=== PATIENT | female | born 1960 | race Caucasian/White ===

== ENCOUNTER 2022-06-18 12:40 | Inpatient (IN) | payer MEDICAID ==
[~2022-06-18] VITALS: Ht 172.7 cm; Wt 83.7 kg
--- NOTE | 2022-06-18 12:43 | NUR ---
Patient to ER bed 04 to gown for evaluation. Side rails up.
[2022-06-18 12:44] VITALS: BP_SYST 138
--- NOTE | 2022-06-18 13:00 | NUR ---
Met with patient and assessed. Gave IV fluids following drawing blood. Patient states having pain and jarad try to go to the bathroom. Patient blood sent to the lab abd patient taken to the CT scanner for Exam.
[2022-06-18] MEDS ORDERED: MORPHINE 4 MG INJ. 4 MG/ML VIAL IVP ONE (13:15)
[2022-06-18] MEDS ORDERED: NACL 0.9% 1,000 ML IV ONE ×2 (13:15→14:00)
[2022-06-18] MEDS ORDERED: ONDANSETRON HCL 4 MG/2 ML VIAL IVP ONE (13:15)
[2022-06-18 13:27] LABS: BASOPHILS # (AUTO) 0.1 K/uL (0.0-0.2); BASOPHILS % (AUTO) 0.6 % (0.0-2.0); EOSINOPHILS # (AUTO) 0.1 K/uL (0.0-0.4); EOSINOPHILS % (AUTO) 0.6 % (0.0-4.0); HEMATOCRIT 42.8 % (36-48); HEMOGLOBIN 14.7 g/dL (12.0-16.0); LYMPHOCYTES # (AUTO) 3.1 K/uL (1.0-5.5); LYMPHOCYTES % (AUTO) 23.6 % (20.5-51.5); MEAN CORPUSCULAR HEMOGLOBIN 33 pg (27-31); MEAN CORPUSCULAR HGB CONC 34 % (32-36); MEAN CORPUSCULAR VOLUME 97 fL (79.0-98.0); MONOCYTES # (AUTO) 0.9 K/uL (0.0-1.0); MONOCYTES % (AUTO) 6.5 % (1.7-9.3); NEUTROPHILS # (AUTO) 9.1 K/uL (1.8-7.7); NEUTROPHILS % (AUTO) 68.7 % (40.0-70.0); PLATELET COUNT (AUTO) 307 K/uL (130-430); RED BLOOD CELL COUNT(AUTO) 4.42 MIL/uL (4.2-6.2); RED CELL DISTRIBUTION WIDTH 13.2 % (9.0-15.0); WHITE BLOOD COUNT (AUTO) 13.2 K/uL (4.8-10.8)
[2022-06-18 13:32] LABS: CALCIUM 9.3 mg/dL (8.4-11.0); CREATININE 1.64 mg/dL (0.55-1.30)
[2022-06-18 13:38] LABS: ALBUMIN 3.9 g/dL (3.4-4.8); TOTAL BILIRUBIN 0.6 mg/dL (0.0-1.0)
[2022-06-18 13:43] LABS: POTASSIUM 2.7 mmol/L (3.5-5.1)
[2022-06-18] MEDS ORDERED: POTASSIUM CHLORIDE 40 MEQ, LIDOCAINE JECT 2% PF 100 MG 50 MG in NS 250 ML IV ONE (14:00)
[2022-06-18] MEDS ORDERED: KCL 20 mEq in 100 mL (PREMIX) 200 ML IV ONE (14:39)
--- NOTE | 2022-06-18 15:22 | NUR ---
covid specimen collected sent to the lab.
[2022-06-18 15:43] LABS: BILIRUBIN,URINE NEGATIVE (NEGATIVE); CLARITY/URINE CLEAR (CLEAR); COLOR,URINE YELLOW (YELLOW); GLUCOSE,URINE NEGATIVE (NEGATIVE); KETONES,URINE NEGATIVE (NEGATIVE); LEUKOCYTE ESTERASE ,URINE 2+ (NEGATIVE); NITRITE, URINE NEGATIVE (NEGATIVE); PROTEIN URINE NEGATIVE (NEGATIVE); UROBILINOGEN,URINE 0.2 (0.2-1.0)
--- NOTE | 2022-06-18 16:29 | NUR ---
Called Brian (on-call today) for admission orders.
--- NOTE | 2022-06-18 16:31 | NUR ---
Admission request for hypokalemia: Tele bed.
[2022-06-18 16:53] LABS: BLOOD, URINE TRACE (NEGATIVE)
[2022-06-18 16:54] LABS: BACTERIA,URINE FEW /HPF (None Seen)
[2022-06-18 16:56] LABS: MUCUS,URINE 1+ /LPF (None Seen)
--- NOTE | 2022-06-18 17:13 | NUR ---
Patient was upset about having to stay in the hospital. RN explained need to stay with patient nad Addendum: 06/18/22 at 1716 by [email or web address] and patient then spoke with MD and decided to stay tonight. Awaiting room assignment and transfer to floor.
--- NOTE | 2022-06-18 18:46 | NUR ---
Patient will be admitted to care of [facility]. Admitted to Medical Surgical unit. Will go to room 130A. Belongings list completed. Complete and up to date summary report printed. SBAR report to be given at bedside with opportunity for questions.
[2022-06-18 19:50] VITALS: BP_SYST 138
--- NOTE | 2022-06-18 19:50 | NUR ---
PM ASSESSMENT; -Pt is a/xo4,resting in bed comfortably. Pt denies any chest pain,pain,sob,or any acute distress. IV site patent, no s/s any infiltration noted. Rt a/c redness noted, pt stated, " I think I am allergic to something, I had this before. I will go see a flanging operator soon." Discussed poc,all safety measure, pain mgmt,pt verbalized understanding. Pt is able to use call light w/in reach for assistance. Bed alarmed, side rails x3,call light w/in reach. Cont to monitor pt.
[2022-06-18 20:13] VITALS: BP_SYST 138
[2022-06-18] MEDS ORDERED: LOSA100T3 PO (20:36)
[2022-06-18] MEDS ORDERED: NORT25CA PO (20:39)
[2022-06-18] MEDS ORDERED: SIMV-343 PO (20:39)
[2022-06-18] MEDS ORDERED: PRO40 PO (20:39)
[2022-06-18] MEDS ORDERED: METO-442 PO (20:39)
[2022-06-18] MEDS: D5/0.45 NS 1,000 ML IV SCH (20:49)
--- NOTE | 2022-06-18 21:40 | NUR ---
CONSULTATION CALLED FOR DR. Chapis GRACIA IS ENGINEERING GEOLOGIST FOR CONSULT OF INTRACTIBLE VOMITING ORDER BY DR. Lilli ARREOLA SPOKE WITH TYLER+
--- NOTE | 2022-06-18 21:50 | NUR ---
ROUNDS; -Pt wakes, laying in bed comfortably. Pt denies any pain,sob,N&V or any acute distress. Call light w/in reach. cont to monitor pt.
[2022-06-18] MEDS ORDERED: ONDANSETRON HCL 4 MG/2 ML VIAL IVP PRN (22:30)
[2022-06-18] MEDS ORDERED: HYDROcodone/ACETAMIN 10-325 MG TAB PO PRN (22:30)
[2022-06-18] MEDS ORDERED: HYDROcodone/ACETAMIN 5-325 MG TAB (NORCO/ VICODIN) PO PRN (22:30)
[2022-06-18] MEDS ORDERED: ACETAMINOPHEN 325 MG TABLET PO PRN (22:30)
[2022-06-18] MEDS ORDERED: NALOXONE HCL 0.4 MG/ML AMP (NARCAN) IVP PRN ×2 (22:30)
[2022-06-18] MEDS ORDERED: LORazepam 2 MG/ML VIAL IVP PRN (22:30)
--- NOTE | 2022-06-19 01:42 | NUR ---
ROUNDS; -Pt is asleep. NO s/s any acute distress noted. All safety measures in place. Call light w/in reach. cont to monitor pt.
[2022-06-19 02:39] VITALS: BP_SYST 120
[2022-06-19] MEDS: D5/0.45 NS 1,000 ML IV SCH (03:00)
--- NOTE | 2022-06-19 04:16 | NUR ---
NOTES; -IV site of left ac/ infiltration, removed whole tip catheter in place, no active bleeding, secured with gauze & tape. Rui inserted new IV site of RAC #18,patent,good blood returns after flushed w/ NS, no s/s any infiltration. Continuing to infuse IVF. Call light w/in reach. Cont to monitor pt.
--- NOTE | 2022-06-19 06:55 | NUR ---
CLOSING NOTES; -Pt is a/xo4,resting in bed comfortably. No ss/ any chest pain,pain,sob,or any acute distress noted. IV site patent, no s/s any infiltration noted. Will endorse to next nurse to cont care.
[2022-06-19 06:57] LABS: BASOPHILS # (AUTO) 0.1 K/uL (0.0-0.2); BASOPHILS % (AUTO) 0.8 % (0.0-2.0); EOSINOPHILS # (AUTO) 0.2 K/uL (0.0-0.4); EOSINOPHILS % (AUTO) 1.7 % (0.0-4.0); HEMATOCRIT 36.5 % (36-48); HEMOGLOBIN 12.5 g/dL (12.0-16.0); LYMPHOCYTES # (AUTO) 3.9 K/uL (1.0-5.5); LYMPHOCYTES % (AUTO) 32.3 % (20.5-51.5); MEAN CORPUSCULAR HEMOGLOBIN 33 pg (27-31); MEAN CORPUSCULAR HGB CONC 34 % (32-36); MEAN CORPUSCULAR VOLUME 98 fL (79.0-98.0); MONOCYTES # (AUTO) 0.8 K/uL (0.0-1.0); MONOCYTES % (AUTO) 6.8 % (1.7-9.3); NEUTROPHILS % (AUTO) 58.4 % (40.0-70.0); PLATELET COUNT (AUTO) 185 K/uL (130-430); RED BLOOD CELL COUNT(AUTO) 3.73 MIL/uL (4.2-6.2); RED CELL DISTRIBUTION WIDTH 13.3 % (9.0-15.0)
[2022-06-19 07:29] LABS: ALBUMIN 2.9 g/dL (3.4-4.8); CALCIUM 7.8 mg/dL (8.4-11.0); CREATININE 0.86 mg/dL (0.55-1.30); PHOSPHORUS 2.6 mg/dL (2.7-4.5); POTASSIUM 3.9 mmol/L (3.5-5.1); TOTAL BILIRUBIN 0.7 mg/dL (0.0-1.0)
--- NOTE | 2022-06-19 08:00 | NUR ---
Patient refused all physical assessment as of now, patient states she is ready to go home. RN unable to assess patient.
[2022-06-19] MEDS ORDERED: LOSARTAN POTASSIUM 50 MG TABLET (COZAAR) PO SCH (09:00)
[2022-06-19] MEDS ORDERED: METOPROLOL TARTRATE 50 MG TABLET PO SCH (09:00)
[2022-06-19] MEDS ORDERED: NORTRIPTYLINE HCL 25 MG CAPSULE PO SCH (09:00)
[2022-06-19] MEDS ORDERED: PANTOPRAZOLE SODIUM 40 MG TAB PO SCH (09:00)
--- NOTE | 2022-06-19 09:47 | NUR ---
Received patient in bed aao x 4, vital signs within normal limits, denies pain, patient refused all her meds, states she doesn't know what they are, patient states she already spoke to the Doctor and the DAoctor told her she can leave, patient states "the joke is on you guys because am leaving now." Explained discharge procedures to patient, patient states "no joke is on you, you better take this out or i will go home with it". Patient inpatient and wants to leave. Will alert Charge Nurse.
--- NOTE | 2022-06-19 10:30 | NUR ---
Patient left AMA, Patient appear comfortable.
[2022-06-19] MEDS ORDERED: SIMVASTATIN 20 MG TABLET PO SCH (21:00)
== END 2022-06-19 11:00 | disposition left against medical advice (07) | DRG 241 ==
LOC: SED 12:40 → SMU 16:46
PROVIDERS: ADMIT Preventive Medicine Preventive Medicine/Occupational Environmental Medicine; ATTEND Preventive Medicine Preventive Medicine/Occupational Environmental Medicine
DX: K29.70 Gastritis, unspecified, without bleeding (principal); N17.0 Acute kidney failure with tubular necrosis; E83.39 Other disorders of phosphorus metabolism; K52.9 Noninfective gastroenteritis and colitis, unspecified; E86.0 Dehydration; E78.5 Hyperlipidemia, unspecified; I10 Essential (primary) hypertension; Z20.822 Contact with and (suspected) exposure to COVID-19; E83.52 Hypercalcemia; E87.1 Hypo-osmolality and hyponatremia; E87.6 Hypokalemia; E88.09 Other disorders of plasma-protein metabolism, not elsewhere classified; F17.200 Nicotine dependence, unspecified, uncomplicated; F32.A Depression, unspecified; K21.9 Gastro-esophageal reflux disease without esophagitis; E66.9 Obesity, unspecified; Z53.29 Procedure and treatment not carried out because of patient's decision for other reasons; Z79.899 Other long term (current) drug therapy; Z88.0 Allergy status to penicillin; Z68.28 Body mass index [BMI] 28.0-28.9, adult
CPT/HCPCS: 36415; 76376; 80053; 81000; 83690; 83735; 84100; 85025; 96361; 96374; 96375; 99285; J2270; J2405; J3480; J7050

== ENCOUNTER 2022-08-06 12:02 | Emergency (ER) | payer MEDICAID ==
[~2022-08-06] VITALS: Ht 165.1 cm; Wt 79.8 kg
[~2022-08-06 12:02] MED LIST: LOSA100T3 PO; METO-442 PO; NORT25CA PO; PRO40 PO; SIMV-343 PO
[2022-08-06] MEDS ORDERED: METOCLOPRAMIDE HCL 10 MG/2 ML VIAL IVP ONE (12:15)
[2022-08-06] MEDS ORDERED: MECLIZINE HCL 25 MG TABLET (ANITVERT) PO ONE (12:15)
[2022-08-06 12:19] VITALS: BP_SYST 136
--- NOTE | 2022-08-06 12:26 | NUR ---
Patient to ER bed 02 to gown for evaluation. Side rails up. Report received from EMS.
--- NOTE | 2022-08-06 12:27 | NUR ---
Pt came from home with boyfriend c/o dizziness, stomach pain, nausea and fatigue x 2 days. Pt has hx of HTN, hyperlipidemia. Pt states she has been unable to eat anything besides chicken broth. Pt is A&Ox4, calm and cooperative, with VSS. Care to be provided as ordered.
--- NOTE | 2022-08-06 12:28 | NUR ---
ER Dr. Bonilla at bedside examining patient.
[2022-08-06 13:12] LABS: BASOPHILS # (AUTO) 0.1 K/uL (0.0-0.2); BASOPHILS % (AUTO) 0.6 % (0.0-2.0); EOSINOPHILS # (AUTO) 0.1 K/uL (0.0-0.4); EOSINOPHILS % (AUTO) 0.4 % (0.0-4.0); HEMATOCRIT 42.7 % (36-48); HEMOGLOBIN 14.5 g/dL (12.0-16.0); LYMPHOCYTES # (AUTO) 2.2 K/uL (1.0-5.5); LYMPHOCYTES % (AUTO) 16.9 % (20.5-51.5); MEAN CORPUSCULAR HEMOGLOBIN 33 pg (27-31); MEAN CORPUSCULAR HGB CONC 34 % (32-36); MEAN CORPUSCULAR VOLUME 97 fL (79.0-98.0); MONOCYTES # (AUTO) 0.8 K/uL (0.0-1.0); NEUTROPHILS # (AUTO) 9.8 K/uL (1.8-7.7); NEUTROPHILS % (AUTO) 76.1 % (40.0-70.0); PLATELET COUNT (AUTO) 268 K/uL (130-430); RED BLOOD CELL COUNT(AUTO) 4.39 MIL/uL (4.2-6.2); RED CELL DISTRIBUTION WIDTH 13.9 % (9.0-15.0); WHITE BLOOD COUNT (AUTO) 12.9 K/uL (4.8-10.8)
[2022-08-06 13:30] LABS: ANION GAP 12 (5-15); CALCIUM 9.3 mg/dL (8.4-11.0); CHLORIDE 95 mmol/L (98-107); CREATININE 1.89 mg/dL (0.55-1.30); GLUCOSE 146 mg/dL (70-99); UREA NITROGEN, BLOOD 24 mg/dL (8-21)
[2022-08-06 13:34] LABS: ALANINE AMINOTRANSFERASE 16 U/L (12-78); ALBUMIN 3.8 g/dL (3.4-4.8); ASPARTATE AMINOTRANSFERASE 17 U/L (10-37); TOTAL BILIRUBIN 0.6 mg/dL (0.0-1.0)
[2022-08-06 13:35] LABS: GFR AFRICAN AMERICAN 34 mL/min (>90)
--- NOTE | 2022-08-06 13:38 | NUR ---
CRITICAL LAB VALUE: POTASSIUM 2.8 NOTIFIED
[2022-08-06] MEDS ORDERED: POTASSIUM CHLORIDE 20 MEQ/PKT PACKET PO ONE (14:00)
[2022-08-06] MEDS ORDERED: NACL 0.9% 1,000 ML IV ONE (14:00)
[2022-08-06] MEDS ORDERED: MECL-261 PO (14:00)
[2022-08-06 14:15] VITALS: BP_SYST 136
[2022-08-06] MEDS ORDERED: DIPHENHYDRAMINE INJ 50 MG/ML VIAL IVP ONE (15:15)
--- NOTE | 2022-08-06 16:20 | NUR ---
Patient given written and verbal discharge instructions and verbalizes understanding. ER Dr. Chad ROBLEDO discussed with patient the results and treatment provided. Patient in stable condition. ID arm band removed. IV catheter removed intact and dressing applied, no active bleeding. Rx of meclizine given. Patient educated on pain management and to follow up with PMD. Pain Scale 5/10. Opportunity for questions provided and answered. Medication side effect fact sheet provided.
== END 2022-08-06 16:20 | disposition home or self-care (01) ==
LOC: SED 12:02
DX: R42 Dizziness and giddiness (principal); R51.9 Headache, unspecified; R11.0 Nausea; I10 Essential (primary) hypertension; Z88.0 Allergy status to penicillin; Z79.899 Other long term (current) drug therapy
CPT/HCPCS: 99285; 96360; 70450; 71045; 80053; 85025; 84484; 36415; 93005; 76376; J8597; J1200; J2765; J7030

== ENCOUNTER 2022-08-12 14:12 | Inpatient (IN) | payer MEDICAID ==
[~2022-08-12] VITALS: Ht 165.1 cm; Wt 80.3 kg
[~2022-08-12 14:12] MED LIST changes: +MECL-261 PO
[2022-08-12 14:28] VITALS: BP_SYST 136
[2022-08-12] MEDS ORDERED: NACL 0.9% 1,000 ML IV ONE (16:00)
[2022-08-12 16:27] LABS: BASOPHILS # (AUTO) 0.3 K/uL (0.0-0.2); EOSINOPHILS # (AUTO) 0.1 K/uL (0.0-0.4); EOSINOPHILS % (AUTO) 0.5 % (0.0-4.0); HEMATOCRIT 42.4 % (36-48); HEMOGLOBIN 14.7 g/dL (12.0-16.0); LYMPHOCYTES # (AUTO) 1.8 K/uL (1.0-5.5); LYMPHOCYTES % (AUTO) 12.9 % (20.5-51.5); MEAN CORPUSCULAR HEMOGLOBIN 33 pg (27-31); MEAN CORPUSCULAR HGB CONC 35 % (32-36); MEAN CORPUSCULAR VOLUME 96 fL (79.0-98.0); MONOCYTES # (AUTO) 0.6 K/uL (0.0-1.0); MONOCYTES % (AUTO) 4.1 % (1.7-9.3); NEUTROPHILS # (AUTO) 11.3 K/uL (1.8-7.7); NEUTROPHILS % (AUTO) 80.5 % (40.0-70.0); PLATELET COUNT (AUTO) 324 K/uL (130-430); RED BLOOD CELL COUNT(AUTO) 4.42 MIL/uL (4.2-6.2); RED CELL DISTRIBUTION WIDTH 13.5 % (9.0-15.0)
[2022-08-12 16:37] LABS: ACETONE, SERUM NEGATIVE (NEGATIVE)
[2022-08-12 16:38] LABS: ANION GAP 9 (5-15); CALCIUM 9.9 mg/dL (8.4-11.0); CHLORIDE 95 mmol/L (98-107); CREATININE 1.16 mg/dL (0.55-1.30); GLUCOSE 165 mg/dL (70-99); UREA NITROGEN, BLOOD 14 mg/dL (8-21)
[2022-08-12 16:58] LABS: ALANINE AMINOTRANSFERASE 19 U/L (12-78); ALBUMIN 3.8 g/dL (3.4-4.8); AMYLASE 57 U/L (0-100); ASPARTATE AMINOTRANSFERASE 22 U/L (10-37); LIPASE 92 U/L (73-393); TOTAL BILIRUBIN 0.5 mg/dL (0.0-1.0)
[2022-08-12] MEDS ORDERED: POTASSIUM CHLORIDE 20 MEQ/PKT PACKET PO ONE (17:45)
[2022-08-12] MEDS ORDERED: ONDANSETRON HCL 4 MG/2 ML VIAL IVP PRN (21:15)
[2022-08-12] MEDS ORDERED: cloNIDine HCL 0.1 MG TABLET PO PRN (21:15)
[2022-08-12] MEDS: LR 1,000 ML IV SCH (22:21)
[2022-08-12] MEDS: CIPROFLOXACIN HCL 500 MG TABLET PO SCH (22:28)
[2022-08-12] MEDS: metroNIDAZOLE 500 MG TABLET PO SCH (22:28)
[2022-08-12] MEDS: FAMOTIDINE PF 20 MG/2 ML VIAL IVP SCH (22:28)
[2022-08-12 23:45] VITALS: BP_SYST 119
[2022-08-13 00:41] VITALS: BP_SYST 119
[2022-08-13] MEDS: metroNIDAZOLE 500 MG TABLET PO SCH (06:07)
[2022-08-13] MEDS: LR 1,000 ML IV SCH (06:07)
[2022-08-13 07:40] VITALS: BP_SYST 126
[2022-08-13] MEDS: CIPROFLOXACIN HCL 500 MG TABLET PO SCH (09:48)
[2022-08-13] MEDS: FAMOTIDINE PF 20 MG/2 ML VIAL IVP SCH (11:29)
[2022-08-13 12:00] VITALS: BP_SYST 115
[2022-08-13 12:03] VITALS: BP_SYST 120
== END 2022-08-13 12:16 | disposition home or self-care (01) | DRG 249 ==
LOC: SED 14:12 → STU 23:45
PROVIDERS: ADMIT Internal Medicine; ATTEND Internal Medicine
DX: K52.9 Noninfective gastroenteritis and colitis, unspecified (principal); R65.11 Systemic inflammatory response syndrome (SIRS) of non-infectious origin with acute organ dysfunction; E87.20 Acidosis, unspecified; E78.5 Hyperlipidemia, unspecified; E86.0 Dehydration; E87.6 Hypokalemia; I10 Essential (primary) hypertension; Z88.0 Allergy status to penicillin; Z79.899 Other long term (current) drug therapy
CPT/HCPCS: 36415; 80053; 82009; 82150; 83605; 83690; 84484; 85025; 86140; 96360; 99285; G0378; J3490

== ENCOUNTER 2022-09-05 11:06 | Emergency (ER) | payer MEDICAID ==
[~2022-09-05] VITALS: Ht 165.1 cm; Wt 78.9 kg
--- NOTE | 2022-09-05 11:52 | NUR ---
Swabbed for COVID & FLU. Sent to lab.
[2022-09-05] MEDS ORDERED: ONDANSETRON 4 MG ODT TAB PO ONE (13:45)
[2022-09-05 14:05] LABS: BASOPHILS # (AUTO) 0.1 K/uL (0.0-0.2); BASOPHILS % (AUTO) 0.8 % (0.0-2.0); EOSINOPHILS # (AUTO) 0.1 K/uL (0.0-0.4); HEMATOCRIT 45.4 % (36-48); HEMOGLOBIN 15.4 g/dL (12.0-16.0); LYMPHOCYTES # (AUTO) 2.6 K/uL (1.0-5.5); LYMPHOCYTES % (AUTO) 20.7 % (20.5-51.5); MEAN CORPUSCULAR HEMOGLOBIN 33 pg (27-31); MEAN CORPUSCULAR HGB CONC 34 % (32-36); MEAN CORPUSCULAR VOLUME 97 fL (79.0-98.0); MONOCYTES # (AUTO) 0.8 K/uL (0.0-1.0); MONOCYTES % (AUTO) 6.3 % (1.7-9.3); NEUTROPHILS # (AUTO) 8.9 K/uL (1.8-7.7); NEUTROPHILS % (AUTO) 71.2 % (40.0-70.0); PLATELET COUNT (AUTO) 385 K/uL (130-430); RED BLOOD CELL COUNT(AUTO) 4.67 MIL/uL (4.2-6.2); RED CELL DISTRIBUTION WIDTH 13.7 % (9.0-15.0); WHITE BLOOD COUNT (AUTO) 12.5 K/uL (4.8-10.8)
[2022-09-05 14:12] LABS: ANION GAP 13 (5-15); CALCIUM 10.3 mg/dL (8.4-11.0); CHLORIDE 94 mmol/L (98-107); CREATININE 1.34 mg/dL (0.55-1.30); GLUCOSE 138 mg/dL (70-99); UREA NITROGEN, BLOOD 20 mg/dL (8-21)
[2022-09-05 14:13] VITALS: BP_SYST 134
[2022-09-05 14:15] LABS: GFR AFRICAN AMERICAN 51 mL/min (>90)
--- NOTE | 2022-09-05 14:17 | NUR ---
POTASSIUM 2.6 REPORTED BY LAB. EDP MADE AWARE.
[2022-09-05 14:18] LABS: ALANINE AMINOTRANSFERASE 25 U/L (12-78); ALBUMIN 3.9 g/dL (3.4-4.8); AMYLASE 73 U/L (0-100); ASPARTATE AMINOTRANSFERASE 32 U/L (10-37); C-REACTIVE PROTEIN QUANT 6.5 mg/dL (0-0.5); LACTATE DEHYDROGENASE 175 U/L (81-234); LIPASE 137 U/L (73-393); TOTAL BILIRUBIN 0.7 mg/dL (0.0-1.0)
[2022-09-05 14:22] LABS: ACETONE, SERUM NEGATIVE (NEGATIVE)
[2022-09-05] MEDS ORDERED: POTASSIUM CHLORIDE 20 MEQ TAB.PRT.SR PO ONE (14:30)
[2022-09-05] MEDS ORDERED: NACL 0.9% 1,000 ML IV ONE (15:00)
[2022-09-05] MEDS ORDERED: ONDANSETRON HCL 4 MG/2 ML VIAL IVP ONE (15:00)
[2022-09-05] MEDS ORDERED: KETOROLAC TROMETHAMINE 30 MG VIAL IVP ONE (15:00)
--- NOTE | 2022-09-05 15:32 | NUR ---
Patient from home complaining of nausea and vomiting x 2 days with suprapubic pain 01/18. Pt denies fever or chills. Pt denies dysuria. Pt denies lightheadedness or LOC.
--- NOTE | 2022-09-05 15:37 | NUR ---
# 20 gauge angiocath placed to lac. Use of asceptic technique. Opsite placed over site. Blood return noted. Flushed with 10 cc of normal saline. No evidence of infiltration noted. Patient tolerated well.
--- NOTE | 2022-09-05 15:47 | NUR ---
patient moved to bed 4 for cardiac monitoring.
[2022-09-05] MEDS ORDERED: KCL 20 mEq in NS 1000 mL 1,000 ML IV ONE (16:15)
--- NOTE | 2022-09-05 18:39 | NUR ---
# 16 FR In and Out catheter with use of sterile technique. Immediate return of 50ml ejssa urine noted. Urine sample collected and sent to lab. Pt tolerated procedure well Patient unable to toilet self.
[2022-09-05] MEDS ORDERED: ONDA8TAB60 PO (19:00)
[2022-09-05] MEDS ORDERED: IBUP-1971 PO (19:00)
[2022-09-05 19:13] VITALS: BP_SYST 126
--- NOTE | 2022-09-05 19:15 | NUR ---
Patient given written and verbal discharge instructions and verbalizes understanding. ER MD ROOT discussed with patient the results and treatment provided. Patient in stable condition. ID arm band removed. IV catheter removed intact and dressing applied, no active bleeding. Rx of MOTRIN AND ZOFRAN given. Patient educated on pain management and to follow up with PMD. Pain Scale 0/10. Opportunity for questions provided and answered. Medication side effect fact sheet provided.
[2022-09-05 23:48] LABS: BILIRUBIN,URINE 2+ (NEGATIVE); COLOR,URINE YELLOW (YELLOW); GLUCOSE,URINE NEGATIVE (NEGATIVE); KETONES,URINE 1+ (NEGATIVE); LEUKOCYTE ESTERASE ,URINE NEGATIVE (NEGATIVE); NITRITE, URINE NEGATIVE (NEGATIVE); PROTEIN URINE TRACE (NEGATIVE); UROBILINOGEN,URINE 0.2 (0.2-1.0)
[2022-09-06 00:13] LABS: BLOOD, URINE TRACE (NEGATIVE)
[2022-09-06 00:14] LABS: CLARITY/URINE HAZY (CLEAR)
[2022-09-06 00:19] LABS: BACTERIA,URINE None Seen /HPF (None Seen); WBC,URINE 0-3 /HPF (0-3)
[2022-09-06 00:20] LABS: HYALINE CASTS, URINE 0-10 /LPF (None Seen)
== END 2022-09-05 19:13 | disposition home or self-care (01) ==
LOC: SED 11:06
DX: R10.30 Lower abdominal pain, unspecified (principal); R11.2 Nausea with vomiting, unspecified; I10 Essential (primary) hypertension; E78.5 Hyperlipidemia, unspecified; Z88.0 Allergy status to penicillin; Z79.899 Other long term (current) drug therapy; Z20.822 Contact with and (suspected) exposure to COVID-19
CPT/HCPCS: 99284; 96374; 96361; 96375; 87426; 80053; 81000; 82009; 82150; 83615; 83690; 85025; 86140; 36415; 83605; 87804 ×2; J1885; J2405; J7030; J3480

== ENCOUNTER 2022-09-14 11:37 | Observation (INO) | payer MEDICAID ==
[~2022-09-14] VITALS: Ht 165.1 cm; Wt 73.9 kg
[~2022-09-14 11:37] MED LIST changes: +IBUP-1971 PO; +ONDA8TAB60 PO
[2022-09-14 11:54] VITALS: BP_SYST 115
--- NOTE | 2022-09-14 12:09 | NUR ---
Patient to ER bed H1 to gown for evaluation. Side rails up.
--- NOTE | 2022-09-14 12:15 | NUR ---
PT STATES SHE IS UNABLE TO EAT FOR THE LAST 5 DAYS, STATES SHE HAS ONLY EATEN A BANANA IN THE LAST 5 DAYS. DENIES NAUSEA OR VOMITING, JUST SAYS SHE HAS NO APPETITE.
--- NOTE | 2022-09-14 12:40 | NUR ---
DR JOHNS AT BEDSIDE FOR EVALUATION
[2022-09-14] MEDS ORDERED: NACL 0.9% 1,000 ML IV ONE (13:45)
--- NOTE | 2022-09-14 13:55 | NUR ---
NO CHANGES, RESTING ON GURNEY. AWAITING ORDERS
[2022-09-14 14:13] LABS: HEMATOCRIT 45.9 % (36-48); HEMOGLOBIN 15.4 g/dL (12.0-16.0); MEAN CORPUSCULAR HEMOGLOBIN 33 pg (27-31); MEAN CORPUSCULAR HGB CONC 34 % (32-36); MEAN CORPUSCULAR VOLUME 98 fL (79.0-98.0); PLATELET COUNT (AUTO) 393 K/uL (130-430); RED BLOOD CELL COUNT(AUTO) 4.71 MIL/uL (4.2-6.2); RED CELL DISTRIBUTION WIDTH 13.3 % (9.0-15.0)
[2022-09-14 14:15] LABS: WHITE BLOOD COUNT (AUTO) 13.4 K/uL (4.8-10.8)
[2022-09-14 14:23] LABS: INR 1.1 (0.8-1.2); PROTHROMBIN TIME 11.5 SECS (9.5-12.5)
[2022-09-14 14:24] LABS: CREATININE 1.4 mg/dL (0.55-1.30)
[2022-09-14 14:27] LABS: ALBUMIN 3.6 g/dL (3.4-4.8); TOTAL BILIRUBIN 1.1 mg/dL (0.0-1.0)
--- NOTE | 2022-09-14 14:32 | NUR ---
TAKEN TO RADIOLOGY VIA CM
--- NOTE | 2022-09-14 14:49 | NUR ---
RETURNED FROM RADIOLOGY AND PLACED BACK TO [facility]
[2022-09-14 14:53] LABS: ATYPICAL LYMPHOCYTES % 0 % (0-0); BAND % (MANUAL) 0 % (0-6); BASOPHILS % (MANUAL) 0 % (0-2); EOSINOPHILS % (MANUAL) 2 % (0-7); LYMPHOCYTES % (MANUAL) 30 % (20-46); MONOCYTES % (MANUAL) 7 % (0-11)
--- NOTE | 2022-09-14 15:20 | NUR ---
NOTIFIED ED ADMITTING, SHANTA, REGARDING DR. MURPHY'S REQUEST FOR ADMISSION/TRANSFER. PER DR. MURPHY, PT IS STABLE FOR TRANSFER. WILL CONTACT INDEPENDENT FILM MAKER REGARDING THIS MATTER. PER FACESHEET: [facility]
--- NOTE | 2022-09-14 15:39 | NUR ---
STARCHER AND TENTER RANGE FEEDER REQUESTED FACESHEET AND MIGUELNaun WILL CALL BACK REGARDING OT STATUS. FAX: [phone] [facility] # [phone]
--- NOTE | 2022-09-14 15:44 | NUR ---
DR MURPHY AT BEDSIDE SPEAKING WITH PT AND PTS SPOUSE, PT UP TO RESTROOM WITH STEADY GAIT, UA SENT TO LAB
[2022-09-14] MEDS ORDERED: POTASSIUM CHLORIDE 20 MEQ/PKT PACKET PO ONE (15:45)
[2022-09-14 16:58] LABS: BLOOD, URINE NEGATIVE (NEGATIVE); CLARITY/URINE CLEAR (CLEAR); COLOR,URINE YELLOW (YELLOW); GLUCOSE,URINE NEGATIVE (NEGATIVE); KETONES,URINE 1+ (NEGATIVE); LEUKOCYTE ESTERASE ,URINE 1+ (NEGATIVE); NITRITE, URINE NEGATIVE (NEGATIVE); PROTEIN URINE NEGATIVE (NEGATIVE); UROBILINOGEN,URINE 0.2 (0.2-1.0)
[2022-09-14 17:14] LABS: BILIRUBIN,URINE NEGATIVE (NEGATIVE)
--- NOTE | 2022-09-14 17:20 | NUR ---
PER DR. MURPHY, DUE TO DELAY OF CARE PAGE FOR ADMISSION PER FACESHEET: [facility] Addendum: 09/14/22 at 1724 by [email or web address] PAGING FOR ADMISSION PER FACESHEET: [facility] PER ED MATRIX, PAGE SCHN FOR ADMISSION DR. BISHOP IS SPEECH TEACHER FOR [facility] [phone] MURPHY, WAITED 2 HOURS FOR POT PULLER TO CALL BACK, NO CALL BACK. DUE TO DELAY OF CARE PAGE FOR ADMISSION SPOKE TO MICHELLE
--- NOTE | 2022-09-14 17:23 | NUR ---
ATTEMPTED TO GIVE PT POTASSIUM, PT UNABLE TO TOLERATE IT, ++NAUSEA
[2022-09-14 17:50] LABS: BACTERIA,URINE MODERATE /HPF (None Seen); MUCUS,URINE 1+ /LPF (None Seen); RBC,URINE NONE SEEN /HPF (0-3)
--- NOTE | 2022-09-14 18:27 | NUR ---
REPORT GIVEN TO MYLA, WILL ASSUME CARE
[2022-09-14] MEDS ORDERED: KCL 40 mEq in 100 mL (PREMIX) 100 ML IV ONE (18:45)
[2022-09-14] MEDS ORDERED: ONDANSETRON HCL 4 MG/2 ML VIAL IVP PRN (18:45)
--- NOTE | 2022-09-14 19:29 | NUR ---
Patient to ER bed 03 to gown for evaluation. Side rails up.
--- NOTE | 2022-09-14 19:57 | NUR ---
Assumed cre of pt nd pt is in bed resting with no s/s of distress. &Ox4. VSS. Skin intct. Pt has general weakness and fatigue. Minor nausea. No sob. 22g IV intact on left ac. Pt has no c/o at this time. Bed in lowest position.
[2022-09-14] MEDS: NACL 0.9% 1,000 ML IV SCH ×2 (20:14→23:26)
[2022-09-14] MEDS: POTASSIUM CHLORIDE 20 mEq in 100 mL (PREMIX) 100 ML x 2 doses IV SCH ×2 (20:14→23:26)
--- NOTE | 2022-09-14 20:54 | NUR ---
Admit bed requested Patient will be admitted to care of . Admitted to MedSurg unit. Diagnosis Dehydrayion and Hypokalemia Inpatient (Yes or No) No Observation (Yes or No) Yes Orientation concerns or request close to nursing station (Yes or No) No Covid Status Pending On vent or bipap No Isolation requirements No Needs a sitter No From Home (Yes or if No enter name of facility) Yes Requires Dialysis (Yes or No) No Med Rec Completed (Yes of No) Yes
--- NOTE | 2022-09-14 23:00 | NUR ---
Pt resting quietly, easily awakened, denies c/o pain or discomfort. No needs verbalized at this time.
--- NOTE | 2022-09-15 02:00 | NUR ---
Pt assisted to bedside commode. VSS.
--- NOTE | 2022-09-15 04:35 | NUR ---
Left IV 22g IV infiltrated. Stopped D5 w/ 0.45NS and removed IV. Placed another IV on right ac 22g and restarted D5 w/ 0.45NS. Pt has no c/o.
[2022-09-15 07:03] LABS: BASOPHILS # (AUTO) 0.1 K/uL (0.0-0.2); BASOPHILS % (AUTO) 1.5 % (0.0-2.0); EOSINOPHILS # (AUTO) 0.1 K/uL (0.0-0.4); EOSINOPHILS % (AUTO) 1.6 % (0.0-4.0); HEMATOCRIT 36.7 % (36-48); HEMOGLOBIN 12.5 g/dL (12.0-16.0); LYMPHOCYTES % (AUTO) 25.4 % (20.5-51.5); MEAN CORPUSCULAR HEMOGLOBIN 33 pg (27-31); MEAN CORPUSCULAR HGB CONC 34 % (32-36); MEAN CORPUSCULAR VOLUME 97 fL (79.0-98.0); MONOCYTES # (AUTO) 0.6 K/uL (0.0-1.0); NEUTROPHILS # (AUTO) 5.1 K/uL (1.8-7.7); NEUTROPHILS % (AUTO) 64.5 % (40.0-70.0); PLATELET COUNT (AUTO) 265 K/uL (130-430); RED BLOOD CELL COUNT(AUTO) 3.78 MIL/uL (4.2-6.2); RED CELL DISTRIBUTION WIDTH 13.2 % (9.0-15.0); WHITE BLOOD COUNT (AUTO) 7.9 K/uL (4.8-10.8)
[2022-09-15 07:20] LABS: ALBUMIN 2.5 g/dL (3.4-4.8); CALCIUM 8.3 mg/dL (8.4-11.0); CREATININE 0.79 mg/dL (0.55-1.30); TOTAL BILIRUBIN 0.6 mg/dL (0.0-1.0)
--- NOTE | 2022-09-15 07:30 | NUR ---
ASSUMED PATIENT CARE EYE CLOSE, EASILY AWAKEN NO ACUTE DISTRESS NOTED. ON MEMORIAL ADVISER, WILL CONTINUE TO MONITOR.
[2022-09-15] MEDS ORDERED: ONDANSETRON HCL 4 MG/2 ML VIAL IVP PRN (08:00)
[2022-09-15 09:15] VITALS: BP_SYST 124
--- NOTE | 2022-09-15 09:15 | NUR ---
Admission Note Received patient from ER with diagnosis of Dehydration and hypokalemia. Initial Plan of Care discussed-patient verbalized understanding. Breathing even and unlabored. No pain, no SOB, no distress at this time. IV To RAC 20 g, patent on SL. Oriented to room, call light, pain management and safety. All needs met, safety checks in place, Call light within reach, bed is locked in lowest position. Will Continue to monitor.
--- NOTE | 2022-09-15 09:25 | NUR ---
Patient will be admitted to care of . Admitted to M/S unit. Will go to room 135 Belongings list completed. Complete and up to date summary report printed. SBAR report to be given at bedside with opportunity for questions.
--- NOTE | 2022-09-15 09:31 | NUR ---
CONSULTATION PAGED/CALLED Reason for Consultation: [] RENAL FAILURE Person Who was Notified: [] GABRIELLA Consulting Physician: [] Naun RODGERS DRY ROOM ATTENDANT FOR DR BISHOP Dinkey Brakeman Specialty: [] NEPHRO Ordering Physician: [] DR FIELDS
[2022-09-15 09:34] VITALS: BP_SYST 124
--- NOTE | 2022-09-15 09:56 | NUR ---
MD Millan With patient consulting.
--- NOTE | 2022-09-15 12:15 | NUR ---
ROUNDS: Patient resting in bed. Breathing even and unlabored. No pain, no SOB, no distress at this time. All needs met, safety checks in place, Call light within reach, bed is locked in lowest position. Will Continue to monitor.
[2022-09-15] MEDS ORDERED: POTASSIUM CHLORIDE 20 MEQ/PKT PACKET PO ONE (12:30)
--- NOTE | 2022-09-15 13:04 | NUR ---
CONSULTATION PAGED/CALLED Reason for Consultation: [] VOMITING Person Who was Notified: [] ANNY Consulting Physician: [] DR Naun TIRADO Type Inspector Specialty: [] GI Ordering Physician: [] DR FIELDS
[2022-09-15] MEDS: NACL 0.9% 1,000 ML IV SCH ×2 (13:52→21:53)
[2022-09-15] MEDS ORDERED: POTASSIUM CHLORIDE 20 MEQ in NS 250 ML IV ONE (14:00)
[2022-09-15 14:09] VITALS: BP_SYST 129
--- NOTE | 2022-09-15 14:35 | NUR ---
MD Reconciled MD paged and Medication reconciled done.
[2022-09-15] MEDS ORDERED: ONDANSETRON HCL PO SCH (15:00)
--- NOTE | 2022-09-15 15:57 | NUR ---
MD TIRADO Spoke with MD Tirado regarding patient consult. Per MD patient had workup done last year at [facility]. Believes it is more of a psych issue. ordered Remeron to start tonight to increase appetite. Orders carried out.
[2022-09-15] MEDS: MECLIZINE HCL 25 MG TABLET (ANITVERT) PO SCH (16:57)
[2022-09-15 18:11] VITALS: BP_SYST 132
--- NOTE | 2022-09-15 18:47 | NUR ---
CLOSING NOTE: Patient in bed resting. A/O x4, Arabic speaking. Breathing even and unlabored. No pain, no SOB, no distress at this time. IV To RAC 20 g, patent on infusion pump. All needs met, safety checks in place, Call light within reach, bed is locked in lowest position. Will endorse to nightshift nurse.
--- NOTE | 2022-09-15 19:30 | NUR ---
REPORT RECEIVED, NO DISTRESS NOTED, COMFORT MAINTAINED, RIGHT ARM IV INFUSING WITHOUT DIFFICULTY, NO COMPLAINTS VOICED AT THIS TIME
[2022-09-15 20:00] VITALS: BP_SYST 136
[2022-09-15] MEDS: METOPROLOL TARTRATE 50 MG TABLET PO SCH (21:00)
[2022-09-15] MEDS: NORTRIPTYLINE HCL 25 MG CAPSULE PO SCH (21:00)
[2022-09-15] MEDS: SIMVASTATIN 20 MG TABLET PO SCH (21:00)
[2022-09-15] MEDS: MIRTAZAPINE 15 MG TABLET PO SCH (21:00)
--- NOTE | 2022-09-15 21:45 | NUR ---
patient refuse all pm medications including remeron, states she already took her home medications, instructed patient to not take home medications and to have medications sent home for safety, patient has a home pill box
[2022-09-15 22:58] VITALS: BP_SYST 108
--- NOTE | 2022-09-16 03:30 | NUR ---
IV SITE WITH EDEMA NOTED, DENIES DISCOMFORT, REMOVED IV SITE, ATTEMPTED WITH 3 NURSES, RESITED ON THE RIGHT UPPER ARM 22G, PATIENT UP AD OLAYINKA TO BSC
[2022-09-16 06:14] LABS: BASOPHILS # (AUTO) 0.1 K/uL (0.0-0.2); BASOPHILS % (AUTO) 0.9 % (0.0-2.0); EOSINOPHILS # (AUTO) 0.2 K/uL (0.0-0.4); EOSINOPHILS % (AUTO) 2.9 % (0.0-4.0); HEMATOCRIT 37.3 % (36-48); HEMOGLOBIN 12.3 g/dL (12.0-16.0); LYMPHOCYTES # (AUTO) 2.3 K/uL (1.0-5.5); LYMPHOCYTES % (AUTO) 27.4 % (20.5-51.5); MEAN CORPUSCULAR HEMOGLOBIN 32 pg (27-31); MEAN CORPUSCULAR HGB CONC 33 % (32-36); MEAN CORPUSCULAR VOLUME 98 fL (79.0-98.0); MONOCYTES # (AUTO) 0.6 K/uL (0.0-1.0); MONOCYTES % (AUTO) 7.7 % (1.7-9.3); NEUTROPHILS # (AUTO) 5.1 K/uL (1.8-7.7); NEUTROPHILS % (AUTO) 61.1 % (40.0-70.0); PLATELET COUNT (AUTO) 254 K/uL (130-430); RED BLOOD CELL COUNT(AUTO) 3.81 MIL/uL (4.2-6.2); RED CELL DISTRIBUTION WIDTH 13.6 % (9.0-15.0); WHITE BLOOD COUNT (AUTO) 8.4 K/uL (4.8-10.8)
[2022-09-16] MEDS: MECLIZINE HCL 25 MG TABLET (ANITVERT) PO SCH ×3 (06:23→17:54)
--- NOTE | 2022-09-16 06:24 | NUR ---
PATIENT SLEEPING AND REFUSED AM ANTIVERT AT THIS TIME, NO DISTRESS NOTED, COMFORT MAINTAINED
[2022-09-16 06:29] LABS: CALCIUM 8.4 mg/dL (8.4-11.0); CREATININE 0.67 mg/dL (0.55-1.30)
[2022-09-16 08:00] VITALS: BP_SYST 129
[2022-09-16] MEDS: NORTRIPTYLINE HCL 25 MG CAPSULE PO SCH ×2 (09:26→21:11)
[2022-09-16] MEDS: METOPROLOL TARTRATE 50 MG TABLET PO SCH ×2 (09:26→21:12)
[2022-09-16] MEDS: PANTOPRAZOLE SODIUM 40 MG TAB PO SCH (09:27)
[2022-09-16] MEDS ORDERED: MAGNESIUM SULFATE 4 GM in D5W 250 ML IV ONE (11:30)
[2022-09-16 11:57] VITALS: BP_SYST 140
[2022-09-16] MEDS ORDERED: KCL 20 mEq in 100 mL (PREMIX) 200 ML IV ONE (12:00)
[2022-09-16] MEDS: NACL 0.9% 1,000 ML IV SCH ×2 (12:06→21:13)
[2022-09-16 18:33] VITALS: BP_SYST 121
[2022-09-16] MEDS: MIRTAZAPINE 15 MG TABLET PO SCH (21:00)
[2022-09-16 21:09] VITALS: BP_SYST 122
[2022-09-16] MEDS: SIMVASTATIN 20 MG TABLET PO SCH (21:11)
--- NOTE | 2022-09-17 06:00 | NUR ---
patient slept all night, no distress noted, comfort maintained, right arm iv patent
[2022-09-17] MEDS: MECLIZINE HCL 25 MG TABLET (ANITVERT) PO SCH ×2 (07:07→11:15)
[2022-09-17] MEDS: NACL 0.9% 1,000 ML IV SCH (07:10)
[2022-09-17 08:00] VITALS: BP_SYST 124
[2022-09-17] MEDS: NORTRIPTYLINE HCL 25 MG CAPSULE PO SCH (09:16)
[2022-09-17] MEDS: PANTOPRAZOLE SODIUM 40 MG TAB PO SCH (09:16)
[2022-09-17] MEDS: METOPROLOL TARTRATE 50 MG TABLET PO SCH (09:17)
[2022-09-17 11:43] LABS: CALCIUM 8.3 mg/dL (8.4-11.0); CREATININE 0.57 mg/dL (0.55-1.30)
--- NOTE | 2022-09-17 12:43 | NUR ---
Dietitian Recommendations * Advance to regular diet when medically appropriate * Consider Ensure BID (provides 700 kcal, 26 g PRO), if pt changes her mind and PO decreases GS, MPH, RD Please refer to RD Assessment for further details. Thanks! Addendum: 09/17/22 at [address] Amended: Links added.
[2022-09-17] MEDS ORDERED: MIRT-114 PO (13:43)
[2022-09-17] MEDS ORDERED: POTASSIUM CHLORIDE 20 MEQ TAB.PRT.SR PO ONE (13:45)
[2022-09-17 14:58] VITALS: BP_SYST 136
--- NOTE | 2022-09-17 16:29 | NUR ---
1545: Patient is discharged off unit at this time, vital signs stable,no complaints voiced,no observable distress noted. This justowriter operator(primary RN),reviewed discharge instructions with patient. Patient verbalizes understanding.
== END 2022-09-17 16:23 | disposition home or self-care (01) ==
LOC: SED 11:37 → INTOOBSV 18:32 → SMU 18:32
PROVIDERS: ADMIT Specialist; ATTEND Specialist
DX: R63.0 Anorexia (principal); Z20.822 Contact with and (suspected) exposure to COVID-19; E87.6 Hypokalemia; E86.0 Dehydration; D72.829 Elevated white blood cell count, unspecified; N39.0 Urinary tract infection, site not specified; I10 Essential (primary) hypertension; E78.5 Hyperlipidemia, unspecified; F32.A Depression, unspecified; Z88.0 Allergy status to penicillin; Z79.899 Other long term (current) drug therapy
CPT/HCPCS: 96361; 96365; 96366 ×4; 85027; 80053 ×2; 81000; 83690; 85007; 85610; 85730; 87086; 36415 ×4; 76376; 74176; 99285; 87426; 85025 ×2; 96368; 80048 ×2; 96367; J3480 ×3; J7030 ×3; G0378 ×4; J8597 ×3; J1956 ×3; J7050; J3475; J7060

== ENCOUNTER 2022-09-25 07:56 | Inpatient (IN) | payer MEDICAID ==
[~2022-09-25] VITALS: Ht 165.1 cm; Wt 73.7 kg
[~2022-09-25 07:56] MED LIST changes: +MIRT-114 PO
[2022-09-25 08:03] VITALS: BP_SYST 97
--- NOTE | 2022-09-25 08:24 | NUR ---
REPORT TO DENYS VALLADARES
--- NOTE | 2022-09-25 08:28 | NUR ---
ER at bedside examining patient.
[2022-09-25 08:47] LABS: BASOPHILS # (AUTO) 0.1 K/uL (0.0-0.2); BASOPHILS % (AUTO) 0.9 % (0.0-2.0); EOSINOPHILS # (AUTO) 0.1 K/uL (0.0-0.4); EOSINOPHILS % (AUTO) 0.9 % (0.0-4.0); HEMATOCRIT 42.6 % (36-48); HEMOGLOBIN 14.1 g/dL (12.0-16.0); LYMPHOCYTES # (AUTO) 2.7 K/uL (1.0-5.5); LYMPHOCYTES % (AUTO) 19.7 % (20.5-51.5); MEAN CORPUSCULAR HEMOGLOBIN 32 pg (27-31); MEAN CORPUSCULAR HGB CONC 33 % (32-36); MEAN CORPUSCULAR VOLUME 98 fL (79.0-98.0); MONOCYTES # (AUTO) 0.6 K/uL (0.0-1.0); MONOCYTES % (AUTO) 4.3 % (1.7-9.3); NEUTROPHILS % (AUTO) 74.2 % (40.0-70.0); PLATELET COUNT (AUTO) 383 K/uL (130-430); RED BLOOD CELL COUNT(AUTO) 4.34 MIL/uL (4.2-6.2); RED CELL DISTRIBUTION WIDTH 13.8 % (9.0-15.0); WHITE BLOOD COUNT (AUTO) 13.5 K/uL (4.8-10.8)
--- NOTE | 2022-09-25 08:57 | NUR ---
PT IS LYING ON BED WITH CO N/V/D SINCE THIS MORNING. PT STATED VOMITED 2 TIMES TODAY. SLIGHTLY DIARRHEA. NO OTHER CO. HX OF HTN. NO FURHTER CO. NO ACUTE DISTRESS.
[2022-09-25 09:01] LABS: ANION GAP 17 (5-15); CALCIUM 9.6 mg/dL (8.4-11.0); CHLORIDE 94 mmol/L (98-107); CREATININE 1.06 mg/dL (0.55-1.30); GLUCOSE 183 mg/dL (70-99); UREA NITROGEN, BLOOD 16 mg/dL (8-21)
[2022-09-25 09:08] LABS: GFR AFRICAN AMERICAN 67 mL/min (>90)
[2022-09-25 09:13] LABS: ALANINE AMINOTRANSFERASE 23 U/L (12-78); ALBUMIN 3.5 g/dL (3.4-4.8); AMYLASE 63 U/L (0-100); ASPARTATE AMINOTRANSFERASE 24 U/L (10-37); C-REACTIVE PROTEIN QUANT 12.4 mg/dL (0-0.5); LACTATE DEHYDROGENASE 204 U/L (81-234); LIPASE 183 U/L (73-393); TOTAL BILIRUBIN 0.9 mg/dL (0.0-1.0)
--- NOTE | 2022-09-25 09:14 | NUR ---
PT WAS ASKED TO GO FOR URINE SAMPLE, BUT PT SAID SHE CANNOT URINATE RIGHT NOW. DR. MURPHY WAS AWARE.
[2022-09-25 09:31] LABS: ACETONE, SERUM POSITIVE (NEGATIVE)
[2022-09-25] MEDS ORDERED: cefTRIAXone 2 GM VIAL ONE (10:18)
--- NOTE | 2022-09-25 10:22 | NUR ---
Admit bed requested Patient will be admitted to care of . Admitted to M/S unit. Diagnosis GASTRO-ENTERITIS Inpatient (Yes) Observation (No) Orientation concerns or request close to nursing station (No) Covid Status NEGATIVE On vent or bipap NO Isolation requirements STANDARD Needs a sitter NO From Home (Yes) Requires Dialysis (No) Med Rec Completed (Yes )
[2022-09-25] MEDS ORDERED: ONDANSETRON HCL 4 MG/2 ML VIAL IVP PRN (10:30)
--- NOTE | 2022-09-25 10:57 | NUR ---
ATTENDING DR. BISHOP CAME TO ASSESS PT.
[2022-09-25] MEDS ORDERED: PANTOPRAZOLE SODIUM 40 MG/VIAL (PROTONIX) IVP ONE (11:00)
[2022-09-25] MEDS: LR 1,000 ML IV SCH ×2 (11:12→21:29)
--- NOTE | 2022-09-25 13:32 | NUR ---
NURSE SUPERVISE WAS CALLED FOR REQUESTING BED IN TEL.
--- NOTE | 2022-09-25 17:00 | NUR ---
PT GOT ROOM 116B IN THE M/S. REPORT WAS CALLED AND GIVEN TO GUSTAVO MCFARLANE. ED EMT WILL SEND PT TO FLOOR IN W/C.
[2022-09-25 17:21] VITALS: BP_SYST 137
--- NOTE | 2022-09-25 17:38 | NUR ---
Received patient from ED via wheelchair. Patient is alert and oriented, able to communicate needs. Med surg patient. No edema noted. Pulses palpable in extremities. Patient received on room air,tolerating well. Patient is continent gi/gu. Requesting BSC as she reports feeling weak. Patient skin is intact. Patient is ambulatory without assistive device at baseline but reports feeling weakd/tN/V. Denies nausea at this time. No episode of emesis since arrive at 1720. IV to right AC 20g running LR@ 100ml/hr. Patient reports penicillin allergy
--- NOTE | 2022-09-25 18:09 | NUR ---
Called kitchen for dinner tray, pt on clear liquid diet. Left VM
--- NOTE | 2022-09-25 18:09 | NUR ---
Provided patient with BSC.
--- NOTE | 2022-09-25 18:31 | NUR ---
called kitchen again for tray
--- NOTE | 2022-09-25 18:45 | NUR ---
Patient received clear liquid dinner tray.
[2022-09-25 20:00] VITALS: BP_SYST 121
[2022-09-26 04:00] VITALS: BP_SYST 129
[2022-09-26 08:19] LABS: BASOPHILS # (AUTO) 0.1 K/uL (0.0-0.2); BASOPHILS % (AUTO) 0.9 % (0.0-2.0); EOSINOPHILS # (AUTO) 0.2 K/uL (0.0-0.4); EOSINOPHILS % (AUTO) 2.1 % (0.0-4.0); HEMATOCRIT 33.7 % (36-48); HEMOGLOBIN 11.4 g/dL (12.0-16.0); LYMPHOCYTES # (AUTO) 2.5 K/uL (1.0-5.5); LYMPHOCYTES % (AUTO) 28.1 % (20.5-51.5); MEAN CORPUSCULAR HEMOGLOBIN 33 pg (27-31); MEAN CORPUSCULAR HGB CONC 34 % (32-36); MEAN CORPUSCULAR VOLUME 97 fL (79.0-98.0); MONOCYTES # (AUTO) 0.6 K/uL (0.0-1.0); MONOCYTES % (AUTO) 6.6 % (1.7-9.3); NEUTROPHILS # (AUTO) 5.5 K/uL (1.8-7.7); NEUTROPHILS % (AUTO) 62.3 % (40.0-70.0); PLATELET COUNT (AUTO) 254 K/uL (130-430); RED BLOOD CELL COUNT(AUTO) 3.48 MIL/uL (4.2-6.2); RED CELL DISTRIBUTION WIDTH 13.6 % (9.0-15.0)
[2022-09-26 08:20] LABS: CALCIUM 8.4 mg/dL (8.4-11.0); CREATININE 0.68 mg/dL (0.55-1.30)
[2022-09-26 08:28] LABS: WHITE BLOOD COUNT (AUTO) 8.9 K/uL (4.8-10.8)
[2022-09-26 08:29] VITALS: BP_SYST 131
[2022-09-26] MEDS ORDERED: PANTOPRAZOLE SODIUM 40 MG/VIAL (PROTONIX) IVP SCH (09:00)
[2022-09-26] MEDS: LR 1,000 ML IV SCH (10:12)
[2022-09-26] MEDS ORDERED: POTASSIUM CHLORIDE 20 MEQ TAB.PRT.SR PO ONE (10:45)
[2022-09-26 12:00] VITALS: BP_SYST 114
[2022-09-26] MEDS ORDERED: PANT20TA2 PO (12:14)
--- NOTE | 2022-09-26 14:00 | NUR ---
am notes/ late entry pt stable not in acute distress. iv infusing well. no s/s of infiltration noted. safety precautions in place. poc discussed with pt. verbalized understanding
[2022-09-26 14:19] VITALS: BP_SYST 134
--- NOTE | 2022-09-26 15:30 | NUR ---
D/C Patient/late entry due to care Patient given medication reconciliation form and D/C instructions. Exit Care provided. Patient verbalized understanding. MD discussed with patient the results and treatment provided. Ambulatory with steady gait for discharge to home. Patient in stable condition, ID band removed. IV catheter removed, intact and dressing applied, no active bleeding. Rx of given. Patient educated on pain management. All belongings sent with patient.
== END 2022-09-26 15:30 | disposition home or self-care (01) | DRG 249 ==
LOC: SED 07:56 → SMU 15:35
PROVIDERS: ADMIT Specialist; ATTEND Specialist
DX: K52.9 Noninfective gastroenteritis and colitis, unspecified (principal); R65.10 Systemic inflammatory response syndrome (SIRS) of non-infectious origin without acute organ dysfunction; E86.0 Dehydration; E78.5 Hyperlipidemia, unspecified; K29.70 Gastritis, unspecified, without bleeding; Z20.822 Contact with and (suspected) exposure to COVID-19; I10 Essential (primary) hypertension; Z90.49 Acquired absence of other specified parts of digestive tract; Z79.899 Other long term (current) drug therapy; Z88.0 Allergy status to penicillin
CPT/HCPCS: 36415; 71045; 80048; 80053; 82009; 82150; 83605; 83615; 83690; 84484; 85025; 86140; 87040; 93005; 99285; C9113; J0696; J2405

== ENCOUNTER → 2022-09-28 | Emergency (ER) | payer MEDICAID ==
[~2022-09-28] VITALS: Ht 165.1 cm; Wt 78.9 kg
[~2022-09-28] MED LIST changes: +DOCU-144 PO; +FLEETMO RC; -IBUP-1971 PO; -MECL-261 PO; +PANT20TA2 PO
[2022-09-28 11:30] VITALS: BP_SYST 106
--- NOTE | 2022-09-28 12:05 | NUR ---
Pt brought by self, A&Ox4, pt presents to ER with abdominal pain, constipation x 3 days, skin pink and warm, cap refill <3, VSS
--- NOTE | 2022-09-28 15:24 | NUR ---
CALL TO LAB, NO ANSWER
== END | disposition home or self-care (01) ==
LOC: SED 10:54
DX: K59.00 Constipation, unspecified (principal); I10 Essential (primary) hypertension; E78.5 Hyperlipidemia, unspecified; Z88.0 Allergy status to penicillin; Z79.899 Other long term (current) drug therapy
CPT/HCPCS: 99281; 99284

== ENCOUNTER 2022-09-29 08:49 | Emergency (ER) | payer MEDICAID ==
[~2022-09-29] VITALS: Ht 165.1 cm; Wt 78.9 kg
[~2022-09-29 08:49] MED LIST changes: -DOCU-144 PO; -FLEETMO RC
[2022-09-29 09:00] VITALS: BP_SYST 146
[2022-09-29] MEDS ORDERED: DOCU-144 PO (09:23)
[2022-09-29] MEDS ORDERED: FLEETMO RC (09:23)
== END 2022-09-29 09:30 | disposition home or self-care (01) ==
LOC: SED 08:49
DX: K59.00 Constipation, unspecified (principal); I10 Essential (primary) hypertension; E78.5 Hyperlipidemia, unspecified; Z88.0 Allergy status to penicillin; Z79.899 Other long term (current) drug therapy
CPT/HCPCS: 99282

== ENCOUNTER 2022-11-22 10:10 | Inpatient (IN) | payer MEDICAID ==
[~2022-11-22] VITALS: Ht 162.6 cm; Wt 76.9 kg
[~2022-11-22 10:10] MED LIST changes: +DOCU-144 PO; +FLEETMO RC; -LOSA100T3 PO; +LOSA100T4 PO
[2022-11-22 10:15] VITALS: BP_SYST 105
[2022-11-22] MEDS ORDERED: NS 1000 ML IV.SOLN IV ONE (10:15)
--- NOTE | 2022-11-22 10:15 | NUR ---
PT WA B/B AMBULANCE FROM HOME FOR SYNCOPE EPISODE. PT WAS FOUND DOWN THE BATHROOM AT ROOM. BOYFRIEND CALLED 911. PT WAS ALERT AND AWAKE, SLIGHTLY DROWSY ANS SLOW REACTION. NO FURTHER CO. DR. PORTILLO EXAMINED PT BEDSIDE STAT.
[2022-11-22 11:03] LABS: BASOPHILS % (AUTO) 0.2 % (0.0-2.0); EOSINOPHILS % (AUTO) 0.1 % (0.0-4.0); HEMATOCRIT 39.2 % (36-48); HEMOGLOBIN 12.9 g/dL (12.0-16.0); LYMPHOCYTES # (AUTO) 1.9 K/uL (1.0-5.5); LYMPHOCYTES % (AUTO) 12.6 % (20.5-51.5); MEAN CORPUSCULAR HEMOGLOBIN 32 pg (27-31); MEAN CORPUSCULAR HGB CONC 33 % (32-36); MEAN CORPUSCULAR VOLUME 97 fL (79.0-98.0); MONOCYTES # (AUTO) 0.7 K/uL (0.0-1.0); MONOCYTES % (AUTO) 4.8 % (1.7-9.3); NEUTROPHILS # (AUTO) 12.6 K/uL (1.8-7.7); NEUTROPHILS % (AUTO) 82.3 % (40.0-70.0); PLATELET COUNT (AUTO) 388 K/uL (130-430); RED BLOOD CELL COUNT(AUTO) 4.06 MIL/uL (4.2-6.2); RED CELL DISTRIBUTION WIDTH 16.2 % (9.0-15.0); WHITE BLOOD COUNT (AUTO) 15.3 K/uL (4.8-10.8)
[2022-11-22 11:18] LABS: ANION GAP 24 (5-15); CALCIUM 9.9 mg/dL (8.4-11.0); CHLORIDE 91 mmol/L (98-107); CREATININE 2.49 mg/dL (0.55-1.30); GLUCOSE 202 mg/dL (70-99); UREA NITROGEN, BLOOD 35 mg/dL (8-21)
[2022-11-22 11:20] LABS: INR 1.4 (0.8-1.2); PROTHROMBIN TIME 14.1 SECS (9.5-12.5)
[2022-11-22 11:25] LABS: ALANINE AMINOTRANSFERASE 15 U/L (12-78); ALBUMIN 3.1 g/dL (3.4-4.8); ASPARTATE AMINOTRANSFERASE 26 U/L (10-37); TOTAL BILIRUBIN 0.9 mg/dL (0.0-1.0)
[2022-11-22 11:26] LABS: ALCOHOL, BLOOD < 3 mg/dL (<10); GFR AFRICAN AMERICAN 25 mL/min (>90)
[2022-11-22] MEDS ORDERED: metroNIDAZOLE 500 mg/NS 100 ML IV ONE (12:15)
[2022-11-22] MEDS ORDERED: MORPHINE 2 MG/ML INJ. SYRINGE IVP PRN (13:15)
[2022-11-22] MEDS ORDERED: MUPIROCIN 2% TOPICAL OINTMENT 22 GM NS PRN (13:15)
[2022-11-22] MEDS ORDERED: POTASSIUM CHLORIDE 20 MEQ TAB.PRT.SR PO PRN (13:15)
[2022-11-22] MEDS ORDERED: ACETAMINOPHEN 325 MG TABLET PO PRN ×2 (13:15→13:30)
[2022-11-22] MEDS ORDERED: MAGNESIUM SULFATE 50 ML IV PRN (13:15)
[2022-11-22] MEDS ORDERED: DOCUSATE SODIUM 100 MG CAPSULE PO PRN (13:15)
--- NOTE | 2022-11-22 13:20 | NUR ---
KRISTY ROBLEDO ORDER. F/C INSERTED. URINE SAMPLE COLLECTED AND SENT. 'ELDER SISTER BEDSIDE. PROCEDURE WAS EXPLAINED TO SISTER AND PT. BOTH VERBALIZED UNDERSTANDING.
[2022-11-22] MEDS: NACL 0.9% 1,000 ML IV SCH ×2 (13:50→22:30)
[2022-11-22 15:07] LABS: BLOOD, URINE NEGATIVE (NEGATIVE); CLARITY/URINE CLEAR (CLEAR); GLUCOSE,URINE NEGATIVE (NEGATIVE); KETONES,URINE NEGATIVE (NEGATIVE); LEUKOCYTE ESTERASE ,URINE NEGATIVE (NEGATIVE); NITRITE, URINE NEGATIVE (NEGATIVE); PH,URINE 6.5 (5.0-8.0); PROTEIN URINE 2+ (NEGATIVE); UROBILINOGEN,URINE 0.2 (0.2-1.0)
[2022-11-22] MEDS: MORPHINE 2 MG/ML INJ. SYRINGE IVP PRN (15:32)
[2022-11-22 15:33] LABS: BILIRUBIN,URINE NEGATIVE (NEGATIVE)
[2022-11-22] MEDS: ONDANSETRON HCL 4 MG/2 ML VIAL IVP PRN ×2 (15:33→23:24)
[2022-11-22 15:34] LABS: COLOR,URINE YELLOW (YELLOW)
--- NOTE | 2022-11-22 15:34 | NUR ---
CO PAIN ON ABDOMEN. MORPHINE WITH ZOFRAN GIVEN IVP .
[2022-11-22 15:38] LABS: BENZODIAZEPINE, URINE NEGATIVE (NEG <=150); CANNABINOID, URINE NEGATIVE (NEG <=50); COCAINE, URINE NEGATIVE (NEG <=150); METHAMPHETAMINES SCREEN,URINE NEGATIVE (NEG <=500); OPIATE, URINE NEGATIVE (NEG <=100); PHENCYCLIDINE SCREEN,URINE NEGATIVE (NEG <=25); UR TRICYCLIC ANTIDEPRESSANTS POSITIVE (NEG <=300); URINE AMPHETAMINE NEGATIVE (NEG <=500); URINE METHADONE NEGATIVE (NEG <=200); URINE OXYCODONE SCREEN NEGATIVE (NEG <=100); URINE PROPOXYPHENE SCREEN NEGATIVE (NEG <=300)
[2022-11-22 15:39] LABS: BARBITURATE, URINE POSITIVE (NEG <=200)
--- NOTE | 2022-11-22 15:46 | NUR ---
K+ 3.0L. KCL GIVEN PO. SISTAER ASSISTED PT TO SWALLOW THE PILL.
[2022-11-22 15:50] LABS: BACTERIA,URINE RARE /HPF (None Seen); HYALINE CASTS, URINE 0-10 /LPF (None Seen); MUCUS,URINE 1+ /LPF (None Seen); RBC,URINE NONE SEEN /HPF (0-3)
--- NOTE | 2022-11-22 17:54 | NUR ---
OPENING/CLOSING NOTES: RECEIVED BEDSIDE REPORT FROM ER NURSE, PATIENT IS COLD AND SHAKING, IV TO RT AC, PATIENT WILL NOT ASK SIMPLE QUESTIONS, N/V, F/C DRAINING TO GRAVITY, DARK BRIGHT COLOR, NON LABOR BREATHING, SKIN ALL INTACT, WILL GIVE PM SHIFT NURSE BESIDE SBAR
--- NOTE | 2022-11-22 17:57 | NUR ---
PT GOT BED 125A. PT WAS GURNEYED TO FLOOR. REPORT ENDORSED BEDSIDE TO RN/FLOOR.
[2022-11-22 21:49] VITALS: BP_SYST 95
[2022-11-22 22:51] VITALS: BP_SYST 120
--- NOTE | 2022-11-22 22:53 | NUR ---
PT VITALS ARE STABLE, DENIES ANY ABDOMINAL PAIN , STATES HAVING NAUSEA AND VOMITING FOR DAYS. TROPONIN 128, DR. CHOW WAS NOTIFIED. NO FURTHER ACTION NEEDED. COMFORT MEASURES ARE PROVIDED. BED IS LOW POSITION AND CAKLL LIGH IN REACH
[2022-11-22] MEDS: metroNIDAZOLE 500 mg/NS 100 ML IV SCH (23:24)
--- NOTE | 2022-11-22 23:30 | NUR ---
ROUNDING NOTE RECEIVED PT FROM DENYS ADDISON. PT SITTING IN BED. REPORTED NAUSEA. GIVEN EMESIS BAG. PT IS NPO. BED ALARM ON AND LOWEST POSITION. CALL LIGHT IN REACH. CONTINUE TO MONITOR
[2022-11-23] VITALS (8 sets, daily range): BP systolic 92–139
--- NOTE | 2022-11-23 02:00 | NUR ---
NEW IV IV ON RAC WAS DISLOCATED. OBTAINED NEW IV ON RW 22G. BLOOD RETURNED AND FLUSHED BACK. SKIN INTACT. SECURE WITH LIGHT GAUZE.
[2022-11-23 03:56] LABS: BASOPHILS % (AUTO) 0.2 % (0.0-2.0); EOSINOPHILS % (AUTO) 0.1 % (0.0-4.0); HEMATOCRIT 36.2 % (36-48); LYMPHOCYTES # (AUTO) 2.1 K/uL (1.0-5.5); LYMPHOCYTES % (AUTO) 9.8 % (20.5-51.5); MEAN CORPUSCULAR HEMOGLOBIN 31 pg (27-31); MEAN CORPUSCULAR HGB CONC 33 % (32-36); MEAN CORPUSCULAR VOLUME 95 fL (79.0-98.0); MONOCYTES % (AUTO) 4.8 % (1.7-9.3); NEUTROPHILS # (AUTO) 18.2 K/uL (1.8-7.7); NEUTROPHILS % (AUTO) 85.1 % (40.0-70.0); PLATELET COUNT (AUTO) 329 K/uL (130-430); RED BLOOD CELL COUNT(AUTO) 3.81 MIL/uL (4.2-6.2); RED CELL DISTRIBUTION WIDTH 15.8 % (9.0-15.0); WHITE BLOOD COUNT (AUTO) 21.3 K/uL (4.8-10.8)
[2022-11-23 04:24] LABS: ALBUMIN 2.2 g/dL (3.4-4.8); CALCIUM 8.6 mg/dL (8.4-11.0); CREATININE 2.03 mg/dL (0.55-1.30); THYROID STIMULATING HORMONE 0.71 uIu/mL (0.34-4.82)
--- NOTE | 2022-11-23 04:32 | NUR ---
ROUNDING NOTE PT LYING IN BED AND HOLDING EMESIS BAG. BREATHING EVEN AND NONLABORED. SAFETY CHECKS IN PLACE. BED ALARM ON. IV FLOW NS @150. CONTINUE TO MONITOR
[2022-11-23] MEDS ORDERED: KCL 20 mEq in 100 mL (PREMIX) 100 ML IV ONE ×4 (05:00→11:00)
--- NOTE | 2022-11-23 05:03 | NUR ---
HIGH ALERT NOTE: Called at [phone] identified within the medical roster to verify physician authenticity.
[2022-11-23] MEDS: NACL 0.9% 1,000 ML IV SCH ×3 (05:25→19:48)
[2022-11-23] MEDS: metroNIDAZOLE 500 mg/NS 100 ML IV SCH ×3 (05:34→22:47)
[2022-11-23] MEDS: ONDANSETRON HCL 4 MG/2 ML VIAL IVP PRN ×2 (06:22→14:47)
--- NOTE | 2022-11-23 06:51 | NUR ---
CLOSING NOTE PT LYING IN BED ON HER LEFT SIDE HOLDING EMESIS BAG. ALERT/ ORIENTED X2. CRITICAL LAB POTASSIUM 2.3, TROPONIN I [address] CHOW. ORDERED KRIDER 40meq X2, TOTAL 80 meq. PT RECEIVING KRIDER AND NS VIA IV. BED ALARM ON AND LOWEST POSITION. CALL LIGHT IN REACH. ENDORSED TO DAY SHIFT NURSE.
--- NOTE | 2022-11-23 08:00 | NUR ---
Initial notes Awake, but not really talking, she just holding the emesis bag, but no vomiting noted. Afebrile, IVF and k arik infusing at this time. repositioned patient. Call light within reach. Enc to call for help as needed.
--- NOTE | 2022-11-23 08:06 | NUR ---
CONSULTATION PAGED REASON FOR CONSULTATION:WALDO WAS CONSULT CALLED?Y PERSON WHO WAS NOTIFIED:ELAYNE CONSULTING PHYSICIAN:LOLA HONG [place] SPECIALTY:NEPHROLOGY [place] PHONE NUMBER:[phone] REQUESTING PHYSICIAN:ABBEY CONSTANTINO
[2022-11-23] MEDS ORDERED: DIATR MEGLU/DIATRIZ SOD 30 ML SOLUTION PO ONE (08:25)
--- NOTE | 2022-11-23 08:26 | NUR ---
CONSULTATION PAGED REASON FOR CONSULTATION:SEPSIS WAS CONSULT CALLED?Y PERSON WHO WAS NOTIFIED:ELAYNE CONSULTING PHYSICIAN:MARITZA PALOMARES PRODUCTION LINE MANAGER SPECIALTY:INFECTIOUS DISEASE PRODUCTION LINE MANAGER PHONE NUMBER:[phone] REQUESTING PHYSICIAN:CHARLES CONSTANTINO
[2022-11-23] MEDS ORDERED: LEVOFLOXACIN 250 MG/D5W 50 ML IV SCH (09:00)
--- NOTE | 2022-11-23 09:16 | NUR ---
Notes- Patient started small bowel series at this time.
--- NOTE | 2022-11-23 10:14 | NUR ---
CONSULTATION PAGED/CALLED Reason for Consultation: [] ELEVATED LIVER ENZYMES, INTRACTABLE VOMITING Person Who was Notified: [] AURA Consulting Physician: [] DR PERDOMO [employer] Commerce Specialist Specialty: [] GI Ordering Physician: [] DR RIBEIRO
[2022-11-23] MEDS ORDERED: PANTOPRAZOLE SODIUM 40 MG/VIAL (PROTONIX) IVP ONE (11:00)
--- NOTE | 2022-11-23 11:00 | NUR ---
Notes- Family at bedside, helping family to drink oral contrast.
[2022-11-23] MEDS ORDERED: GASTROGRAFIN 120 ML ONE ×2 (11:52→12:42)
[2022-11-23] MEDS: MORPHINE 2 MG/ML INJ. SYRINGE IVP PRN (12:32)
--- NOTE | 2022-11-23 12:35 | NUR ---
Pain- Patient moaning, family at bedside and stated that patient is in pain from moving her whe they are takig xray. Medicate with morphine as ordered.
[2022-11-23] MEDS ORDERED: CEFEPIME 2 GM in D5W 100 ML IV SCH (14:00)
--- NOTE | 2022-11-23 14:15 | NUR ---
Paged ; re patient still moaning, and family wants to give patient pain medications. Informed (kathy, friend) that its not time for pain and i jus paged the doctor.
[2022-11-23] MEDS ORDERED: FLUCONAZOLE 100 mg/ NS 50 ML IV SCH (15:00)
--- NOTE | 2022-11-23 15:45 | NUR ---
RT NOTES Responded to rapid response, abnormal breathing pattern noted. Pt. was bagged with 100% O2 via resus. bag to mask. @1600 pt was intubated by Dr Bonilla with 7.5 ETT secured at 20cm lipline. Colorimetric changed to yellow, bilat. b/s/chest rise noted. Pt was bagged during PICC/Central line placement done by Dr Bonilla. Once transferred in ICU, placed pt on vent AC 16 450 +5 100% per Dr Bonilla. Sputum collected endorsed to lab. Vent to red outlet, alarms are set and audible, resus. bag with mask remains at bedside.
[2022-11-23] MEDS ORDERED: ETOMIDATE 20 MG/ 10 ML VIAL (AMIDATE) ONE (16:00)
--- NOTE | 2022-11-23 16:30 | NUR ---
1543- Called Rapid response- Found patient unresponsive, 02 sat at 70% , applied oxygen at @2L went up to 86%. RR is 22, labored, extremities were called. B/P IS 109/50. Called Dr. Brown and aware 1600- patient was intubated. 1615- Called and informed Vern ( friend-next of kin).
--- NOTE | 2022-11-23 16:30 | NUR ---
Transfer patient to ICU, Report given to Felicita.
[2022-11-23] MEDS ORDERED: NOREPINEPHRINE BITARTRATE 8 MG in D5W 242 ML IV PRN (16:45)
[2022-11-23] MEDS ORDERED: PROPOFOL DRIP 100 ML IV ONE (16:45)
[2022-11-23] MEDS ORDERED: NOREPINEPHRINE BITARTRATE 8 MG in NS 242 ML IV PRN (17:00)
[2022-11-23] MEDS ORDERED: PROPOFOL DRIP 100 ML IV PRN (17:00)
[2022-11-23] MEDS ORDERED: NOREPINEPHRINE 4 MG/4 ML VIAL IV ONE (17:11)
--- NOTE | 2022-11-23 17:25 | NUR ---
RT NOTES FIO2 TO 0.50 PER ABG RESULT, TITRATION ORDER AND DR MURPHY.
--- NOTE | 2022-11-23 19:15 | NUR ---
Opening notes Received report from endorsing morning shift RN for continuity of care. Patient is lying in bed with IVF levophed @ 1 mcg/kg/min. and propofol off. Patient's vital signs blood pressure 92/38, heart rate 128, respirations 34, and SPO2 89% on ventilator. Ventilator settings AC 16, tidal volume 450, FIO2 50%, and peep of 5. OGT is in place, low-intermittent suction. Bryant catheter is in place draining to gravity. Bed is locked and in lowest position, fall and safety precautions is in place.
--- NOTE | 2022-11-23 19:30 | NUR ---
RT NOTES PATIENT IS HAVING BAD PERFUSION. SPO2 SHOWING 70'S. PREVIOUS ABG DONE POST 2 HOURS SHOWED 550 PO2. DENYS HECK. CXRAY SHOWS ETT ABOVE MALCOLM 6.7 CM. AWAITING FRONT DESK AUXILIARY FOR RECOMMENDATION TO ADVANCE ETT. DENYS HECK. Addendum: 11/23/22 at 2014 by Russell Chao RT Amended: Links added.
[2022-11-23] MEDS ORDERED: NS IV PRN (19:45)
[2022-11-23] MEDS ORDERED: NOREPINEPHRINE BITARTRATE IV PRN (19:45)
--- NOTE | 2022-11-23 20:12 | NUR ---
CONSULTATION PAGED/CALLED Reason for Consultation: Stat consult Person Who was Notified: Consulting Physician: lyssa Commercial Sheet Metal Foreman Specialty: pulmo Ordering Physician: jenniffer
--- NOTE | 2022-11-23 20:14 | NUR ---
Called Dr. Brown at the beginning of the shift for orders. Waiting for call back. Called Dr. Nowak for orders. New order given, check eMAR. Called Dr. Benz for orders. New order given. Stat pulmonary MD consult for Dr. Ibarra. Dr. López called back, gave new orders, check eMAR.
[2022-11-23] MEDS ORDERED: NACL 0.9% 1,000 ML IV ONE ×2 (20:15→22:30)
[2022-11-23 20:22] LABS: CALCIUM 8.4 mg/dL (8.4-11.0); CREATININE 3.29 mg/dL (0.55-1.30)
--- NOTE | 2022-11-23 20:25 | NUR ---
RT NOTES 7.5 ETT ADVANCED 2CM FROM 20CM TO 22CM PER DR DO. DENYS MALONE AT BEDSIDE. STAT CXRAY TO BE OBTAINED TO CONFIRM PLACEMENT. PT PERFUSION IS LOW UNABLE TO OBTAIN ACCURATE SPO2. Addendum: 11/23/22 at 2108 by Russell Chao RT Amended: Links added.
[2022-11-23 20:37] LABS: C-REACTIVE PROTEIN QUANT 21.5 mg/dL (0-0.5)
[2022-11-23] MEDS: PHENYLEPHRINE HCL 100 MG in NS 240 ML IV PRN (20:43)
[2022-11-23] MEDS ORDERED: ALBUMIN HUMAN 25% 100 ML IV ONE (21:00)
[2022-11-23] MEDS ORDERED: VASOPRESSIN 40 UNITS in NS 38 ML IV PRN (21:30)
[2022-11-23] MEDS ORDERED: VASOPRESSIN 20 UNITS/ML VIAL IV ONE (22:00)
[2022-11-23] MEDS ORDERED: EPINEPHrine HCL 1 MG/ML VIAL ONE (22:59)
[2022-11-23] MEDS ORDERED: EPINEPHrine HCL 10 MG in NS 240 ML IV PRN ×2 (23:00→23:45)
[2022-11-24] MEDS: NACL 0.9% 1,000 ML IV SCH ×2 (00:03→02:50)
[2022-11-24] MEDS: NOREPINEPHRINE BITARTRATE 32 MG in NS 218 ML IV PRN ×2 (00:10→02:51)
[2022-11-24] MEDS ORDERED: AMIODARONE HCL 150 MG in D5W 100 ML IV ONE (01:45)
[2022-11-24] MEDS ORDERED: AMIODARONE HCL 450 MG in D5W 241 ML IV SCH (01:45)
[2022-11-24] MEDS: PHENYLEPHRINE HCL 100 MG in NS 240 ML IV PRN (02:52)
--- NOTE | 2022-11-24 04:23 | NUR ---
RT NOTES RESPONDED TO FLORENCE ROB CALLED AT [phone]. UPON ENTERING ROOM CPR IN PROGRESS. CPR CONTINUED WITH 100 FIO2 VIA AMBU BAG. ROSC NOT ACHIEVED. PT PRONOUNCED AT [address] OROZCO AT BEDSIDE.
--- NOTE | 2022-11-24 05:14 | NUR ---
notified doctors noe rogders arora, jayasekara, mariano, rezvani, and marisol that pt at 422 this morning
--- NOTE | 2022-11-24 06:15 | NUR ---
FAMILY UPDATE SPOKE WITH PTS DAUGHTER IN LAW HAILEY DOYLE. ALL QUESTIONS ANSWERED. PER HAILEY THEY WILL WORK ON GETTING A MORTUARY AND WILL CALL BACK WITH THAT INFORMATION.
--- NOTE | 2022-11-24 06:22 | NUR ---
Patient is bradycardic at first and checked for a pulse, pulse was felt with another RN. Called a code at 0415, patient asystole on the monitor, checked for pulse, no pulse is felt. Dr. Chapa pronounced time of at 042. See code sheet for details. 0431- Called Vern (significant other) @ 0431 to inform him about the patient's passing. 0442- Called [facility] and talked to Vinny. Case #[id number]. 0509- Called [facility] and talked to Lilli Cuadra Patient is not a [facility] case. 0545- Patient's son Zackery called, informed him that his mother .
--- NOTE | 2022-11-24 08:22 | NUR ---
SPOKE WITH STEPHANIFRPATEL ARREDONDO, NOTIFIED THAT THEY WILL BE VISITING WITHIN 30 MINUTES. NOTIFIED THAT PATIENT BODY NEEDS TO BE MOVED TO HOLDING ROOM TO BE COOLED SHORTLY.
[2022-11-24] MEDS ORDERED: PANTOPRAZOLE SODIUM 40 MG/VIAL (PROTONIX) IVP SCH (09:00)
--- NOTE | 2022-11-24 12:35 | NUR ---
DAUGHTER IN LAW HAILEY VIVEK CALLED AND WANTED TO SPEAK WITH DR RIBEIRO ABOUT WHAT OCCURRED DURING PATIENT CARE AND END OF LIFE. PAGED DR RIBEIRO AND PROVIDED NUMBER HAILEY DOYLE PROVIDED [phone]. ALSO TRANSFERRED PHONE CALL TO MEDICAL RECORDS.
== END 2022-11-24 04:43 | DRG 720 ==
LOC: SED 10:10 → STU 13:06 → SIC 11-23 16:39
PROVIDERS: ADMIT Family Medicine; ATTEND Family Medicine
PROC: 05HM33Z Insertion of Infusion Device into Right Internal Jugular Vein, Percutaneous Approach (ICD-10-PCS; 2022-11-22)
PROC: B543ZZA Ultrasonography of Right Jugular Veins, Guidance (ICD-10-PCS; 2022-11-22)
PROC: 0D9670Z Drainage of Stomach with Drainage Device, Via Natural or Artificial Opening (ICD-10-PCS; 2022-11-22)
PROC: 5A1935Z Respiratory Ventilation, Less than 24 Consecutive Hours (ICD-10-PCS; 2022-11-23)
PROC: 0BH17EZ Insertion of Endotracheal Airway into Trachea, Via Natural or Artificial Opening (ICD-10-PCS; 2022-11-23)
PROC: 5A12012 Performance of Cardiac Output, Single, Manual (ICD-10-PCS; principal; 2022-11-24)
DX: A41.9 Sepsis, unspecified organism (principal); N17.0 Acute kidney failure with tubular necrosis; R65.21 Severe sepsis with septic shock; E43 Unspecified severe protein-calorie malnutrition; E87.6 Hypokalemia; I10 Essential (primary) hypertension; K21.9 Gastro-esophageal reflux disease without esophagitis; E78.5 Hyperlipidemia, unspecified; F32.A Depression, unspecified; N39.0 Urinary tract infection, site not specified; E66.9 Obesity, unspecified; K76.9 Liver disease, unspecified; Z20.822 Contact with and (suspected) exposure to COVID-19; Z88.0 Allergy status to penicillin; Z79.899 Other long term (current) drug therapy; Z68.29 Body mass index [BMI] 29.0-29.9, adult; Z87.19 Personal history of other diseases of the digestive system; Z90.49 Acquired absence of other specified parts of digestive tract; I46.9 Cardiac arrest, cause unspecified
CPT/HCPCS: 36415; 36600; 70450-TC; 71045; 74018; 74250-TC; 76376; 80048; 80053; 80061; 80307; 81000; 82803-TC; 83605; 83690; 83735; 83880; 84443; 84484; 85025; 85610-TC; 85730-TC; 86140; 87040; 87070-TC; 87086; 87205-TC; 92950; 93005; 94003; 94640; 96361; 96365; 99285; C9113; G0378; G0482; J0171; J0692; J1450; J1956; J2270; J2370; J2405; J2704; J3480; J3490; J7050; J7060; Q9963; Q9964